=== PATIENT | female | born 1975 | race African-American/Black ===

== ENCOUNTER → 2016-07-23 | Outpatient (CLI) | payer BC ==
[2014-03-16 14:12] VITALS: BP 203/120
[~2016-07-23] MED LIST: CLON0.1T PO; DOXY100T PO; FURO-68 PO; LISI40TA PO; METF500T4 PO; METO25TA2 PO; OMEP20CA9 PO; OXYC-250 PO; WARF7.5T PO
== END | disposition home or self-care (01) ==
LOC: PMGWOUND 08:21
PROVIDERS: ATTEND Preventive Medicine Undersea and Hyperbaric Medicine
DX: I87.312 Chronic venous hypertension (idiopathic) with ulcer of left lower extremity (principal); L97.321 Non-pressure chronic ulcer of left ankle limited to breakdown of skin; Z87.891 Personal history of nicotine dependence; Z72.89 Other problems related to lifestyle
CPT/HCPCS: 99202; 99214